=== PATIENT | female | born 1965 | race American Indian/Alaskan Native ===

== ENCOUNTER 2017-03-14 12:39 | Outpatient (CLI) | payer BC ==
--- NOTE | 2017-03-14 13:33 | XRay Report ---
RIGHT ELBOW, 3 views: History: Right elbow pain and swelling. The bony architecture is intact without evidence of fracture or dislocation. No significant soft tissue abnormality is seen. IMPRESSION: Normal right elbow.
== END 2017-03-14 12:40 | disposition home or self-care (01) ==
LOC: XRAY 12:39
PROVIDERS: ATTEND Internal Medicine
DX: M25.521 Pain in right elbow (principal); M25.421 Effusion, right elbow

== ENCOUNTER → 2017-08-07 | Outpatient (CLI) | payer BC | LOC: SLR 11:00 | PROVIDERS: ATTEND Otolaryngology | DX: G47.30 Sleep apnea, unspecified (principal); I10 Essential (primary) hypertension | CPT/HCPCS: G0399 ==

== ENCOUNTER 2017-09-01 11:00 | Outpatient (CLI) | payer BC | END 2017-09-01 11:01 | disposition home or self-care (01) | LOC: SLR 11:00 | PROVIDERS: ATTEND Otolaryngology | DX: G47.33 Obstructive sleep apnea (adult) (pediatric) (principal) | CPT/HCPCS: 95811 ==